=== PATIENT | male | born 1960 | race Caucasian/White ===

== ENCOUNTER 2024-08-17 17:08 | Emergency (ER) | payer OTHER, SELFPAY ==
[2024-08-17 17:17] VITALS: BP 155/98
[2024-08-17 17:40] LABS: % Basophils 0.5 % (0-2); % Eosinophils 1.6 % (0-6); % Immature Granulocytes 0.5 % (0-0.5); % Lymphocytes 18.3 % (20.5-51.1); % Monocytes 7.5 % (1.7-9.3); % Neutrophils 71.6 % (42.2-75.2); Absolute Basophils 0.1 10^3/uL (0-0.2); Absolute Eosinophils 0.2 10^3/uL (0-0.7); Absolute Immature Granulocytes 0.1 10^3/uL (0-0.05); Absolute Monocytes 0.8 10^3/uL (0.1-0.6); Absolute Neutrophils 7.8 10^3/uL (1.4-6.5); Hematocrit 50.4 % (39.0-52.0); Hemoglobin 17.5 g/dL (13.0-18.0); Mean Corp Hgb Conc. 34.7 g/dL (33.0-37.0); Mean Corpuscular Hgb 30.3 pg (27.0-31.0); Mean Corpuscular Volume 87.3 fL (80.0-94.0); Mean Platelet Volume 10.4 fL (7.4-10.4); Nucleated Red Blood Cells % 0 % (-); Platelet Count 192 10^3/uL (130-400); Red Blood Cell Count 5.77 10^6/uL (4.70-6.10); Red Cell Dist. Width 13.6 % (11.5-14.5); White Blood Cell Count 10.9 10^3/uL (4.8-10.8)
[2024-08-17 17:41] LABS: Urine Albumin 3+ (Neg - Trace); Urine Bilirubin Negative (Negative); Urine Character Clear (Clear); Urine Color Yellow; Urine Glucose 4+ (Negative); Urine Ketone Negative (Negative); Urine Leukocyte Negative (Negative); Urine Nitrite Negative (Negative); Urine Occult Blood 4+ (Negative); Urine Specific Gravity 1.015 (<1.030); Urine Urobilinogen Negative (Neg - 1+)
[2024-08-17 17:49] LABS: Urine Bacteria Many (Negative); Urine Red Blood Cell >100 /HPF (0-2); Urine Squamous Cell 0-2 /LPF (Few)
[2024-08-17 18:00] LABS: ALT (SGPT) 60 U/L (0-50); AST (SGOT) 56 U/L (17-59); Albumin 4.2 g/dl (3.5-5.0); Alkaline Phosphatase 195 U/L (38-126); Blood Urea Nitrogen 27 mg/dl (9-20); Calcium 10.1 mg/dl (8.4-10.2); Carbon Dioxide 22 mmol/L (22-30); Chloride 112 mmol/L (98-107); Glucose 143 mg/dl (70-99); Potassium 4.5 mmol/L (3.5-5.1); Sodium 140 mmol/L (135-145); Total Bilirubin 0.7 mg/dl (0.2-1.3); Total Protein 7.4 g/dl (6.3-8.2); eGFR > 60.00
--- NOTE | 2024-08-17 19:38 | ED.GENMED ---
History of Present Illness
General
Chief Complaint: Male Genito-Urinary Symptoms
Source: patient
Exam Limitations: none
Time Seen by Provider: 08/17/24 18:59
Nursing documentation reviewed up to this point in time: agreed with
History of Present Illness
History of Present Illness:
63-year-old male no history of kidney stones presents with right flank pain worse with sitting up associated with hematuria no fever no vomiting different than a muscle strain he states his gallbladder is out has had a knee replacement he has had
ankle fusion
Past History
Past History
ED Past Surgical History: Cholecystectomy and Orthopedic
Social History
Tobacco: Non-smoker
Alcohol: None
Drug: None
Personal:
Living: with family
Employment: Employed
Review of Systems
Review of Systems
All Other Systems: Not applicable
Constitutional: Denies fever
Respiratory: Reports no symptoms
Cardiac: Reports no symptoms
ABD/GI: Denies abdominal pain or nausea
: Reports flank pain and bleeding
Musculoskeletal: Reports no symptoms
Phy Exam
Physical Exam
Physical Exam:
Physical Exam
General: no apparent distress, not acutely ill
Neck: No jaundice
Heart: s1/s2 regular rate and rhythm, no murmur. equal radial pulses.
Lungs: no acute respiratory distress. clear bilaterally
Abdomen: Soft nontender mild right flank tenderness
Neuro: alert and oriented. no focal neurological deficits
Skin: no rash
Psychiatric: well kept. interactive and cooperative
Extremities: no edema.
Course
Orders/Labs/Results
Orders:
Orders
08/17/24 17:28
Complete Blood Count/With Diff Urgent
Comprehensive Metabolic Panel Urgent
Urinalysis Reflex To Culture Urgent
Date Specimen was Collected: 08/17/24
Time Specimen was Collected: 17:21
Urine Microscopic Reflex Cult Urgent
Urine Culture Urgent
ISSA Source: U
Specimen Description:
Date Specimen was Collected: 08/17/24
Time Specimen was Collected: 17:21
08/17/24 19:11
CT Abd/pel Without Iv Or Oral Urgent
Comment:
Reason For Exam: Flank pain hematuria
08/17/24 21:16
Amoxicillin 875 mg/Clav 125 mg [Augmentin 875 mg/125 mg] 1 tablet PO NOW STA
Abnormal Lab Results
08/17/24
17:28
WBC 10.9 H 10^3/uL
(4.8-10.8)
Abs Immat Gran (auto) 0.1 H 10^3/uL
(0-0.05)
Absolute Neuts (auto) 7.8 H 10^3/uL
(1.4-6.5)
Absolute Monos (auto) 0.8 H 10^3/uL
(0.1-0.6)
Lymphocytes % 18.3 L %
(20.5-51.1)
Chloride 112 H mmol/L
(98-107)
BUN 27 H mg/dl
(9-20)
Glucose 143 H mg/dl
(70-99)
ALT 60 H U/L
(0-50)
Alkaline Phosphatase 195 H U/L
(38-126)
Ur Occult Blood Reflex 4+ A
(Negative)
Urine RBC >100 A /HPF
(0-2)
Urine Bacteria (Reflex) Many A
(Negative)
Urine Glucose 4+ A
(Negative)
Urine Albumin (Reflex) 3+ A
(Neg - Trace)
08/17/24 17:28
08/17/24 17:28
Vital Signs
Initial and Last Documented VS:
Initial Vital Signs
Temp Pulse Resp BP Pulse Ox
98.4 F 95 18 155/98 97
08/17/24 17:17 08/17/24 17:17 08/17/24 17:17 08/17/24 17:17 08/17/24 17:17
Last Documented Vital Signs
Temp Pulse Resp BP Pulse Ox
98.4 F 95 16 155/98 97
08/17/24 17:17 08/17/24 17:17 08/17/24 19:14 08/17/24 17:17 08/17/24 17:17
MDM/Problems Addressed
Differential Diagnosis Includes:
Hematuria flank pain possible UTI possible stone possible malignancy denies trauma
MDM/Problems Addressed:
Flank pain hematuria
*Radiology
Radiology exam reviewed: radiology read reviewed
*Pulse Oximetry
Patient hypoxic: no
*Critical Care Note
Total Time (30-74mins, 75-104mins- exclusive of procedures): Not Applicable
Update Note
Update Note:
Update labs noted CT noted will start on antibiotics pending culture suggest urology follow-up due to hematuria
ED Attending Note
-
Portions of this chart may have been created with voice recognition software.� Occasional wrong word or��sound alike� substitutions may have occurred due to the inherent limitations of voice recognition software.
Discharge Plan
Departure
Patient Disposition: Home (Routine Discharge)
Date of Disposition: 08/17/24
Time of Disposition: 21:17
Patient with high blood pressure during this ER visit?: No
Condition: Good
Discharge Problem:
Hematuria
Instructions: Blood in the Urine (Hematuria), Adult (DC)
Prescriptions:
New
amoxicillin-pot clavulanate 875-125 mg tablet
1 tab PO Q12H Qty: 20 0RF
naproxen [Naprosyn] 500 mg tablet
500 mg PO BID PRN (Reason: Pain) Qty: 20 0RF
Referrals:
Louie Davis DO [Family Provider, [facility]]
Stewart Lopez Jr., MD [Active, Urology] - Next open appointment
Activity Restrictions/Additional Instructions:
Augmentin antibiotic twice a day, Naprosyn twice a day as needed for pain
Follow-up with your primary care doctor and Dr. Marquis urologist
Return to the ER if uncontrollable pain fevers inability to void or any other concerns
Interventions
Interventions:
*Risk Screen - Suicide Last Done: 08/17/24 17:17
*General Assessment Last Done: 08/17/24 17:17
*Neglect/Abuse Screening Last Done: 08/17/24 17:17
*ED- Fall Risk Assessment Last Done: 08/17/24 19:15
ED-Male Genitourinary Assessment Last Done: 08/17/24 19:14
Discharge Date and Time
Print Language: LATVIAN
[2024-08-17 20:40] LABS: Glucose - Point of Care 78 mg/dl (70-99)
[2024-08-17] MEDS: AUGMENTIN 875 MG/125 MG 1 TABLET PO (21:28)
[2024-08-17 21:37] VITALS: BP 149/87
== END 2024-08-17 21:37 | disposition home or self-care (01) ==
LOC: EMR 17:08
PROVIDERS: Emergency Medicine; EMERGENCY PHYSICIAN Emergency Medicine; FAMILY PHYSICIAN Family Medicine
DX: R10.9 Unspecified abdominal pain (principal); R31.9 Hematuria, unspecified; Z90.49 Acquired absence of other specified parts of digestive tract; Z96.659 Presence of unspecified artificial knee joint
CPT/HCPCS: 99284; 74176; 80053; 81003; 81015; 82962; 85025; 87086

== ENCOUNTER → 2024-09-28 06:57 | Outpatient (REF) | payer OTHER, SELFPAY | LOC: RAD 06:57 | PROVIDERS: ATTENDING PHYSICIAN Specialist; FAMILY PHYSICIAN Family Medicine | DX: R31.0 Gross hematuria (principal) | CPT/HCPCS: 74178; Q9967 ==

== ENCOUNTER 2024-11-10 06:16 | Day surgery (SDC) | payer OTHER, SELFPAY ==
[2024-10-28 13:57] VITALS: BMI 34.4
--- NOTE | 2024-10-31 13:43 | PTCARENOTE ---
Abnormal EKG reviewed by Dr. Parada, no further action requested.
[2024-11-10] VITALS (12 sets, daily range): BP systolic 124–173; BP diastolic 72–100; BMI 34.4
[2024-11-10] MEDS: CYSVIEW KIT 100 MG INTRAVES (06:55)
[2024-11-10 07:00] LABS: Glucose - Point of Care 163 mg/dl (70-99)
[2024-11-10] MEDS: TYLENOL 1000 MG PO (07:10)
[2024-11-10 07:45] LABS: Urine Character Cloudy (Clear)
[2024-11-10 08:26] LABS: Urine Red Blood Cell >100 /HPF (0-2); Urine Squamous Cell SEEN /LPF (Few)
[2024-11-10 09:14] LABS: Glucose - Point of Care 141 mg/dl (70-99)
[2024-11-10] MEDS: SYRINGE NON-PUMP 50 MG IRRIG (09:34)
[2024-11-10] MEDS: SYRINGE NON-PUMP 50 ML IRRIG (09:34)
== END 2024-11-10 11:50 | disposition home or self-care (01) ==
LOC: SDS 06:16
PROVIDERS: ATTENDING PHYSICIAN Specialist; FAMILY PHYSICIAN Family Medicine
DX: C67.8 Malignant neoplasm of overlapping sites of bladder (principal); R31.0 Gross hematuria
CPT/HCPCS: 52240; 52224; 36415; 81003; 81015; 82962; 87086; 88305; 88307; 93005; A9589; J9201